=== PATIENT | female | born 2000 | race African-American/Black ===

== ENCOUNTER 2022-04-25 11:38 | Inpatient (IN) | payer BC ==
[2022-04-23 12:11] VITALS: BMI 39.3
[2022-04-25] MEDS ORDERED: BUPIVACAINE HCL/PF 2.5 MG/ML - 30 ML VIAL IJ ONE (12:50)
[2022-04-25] MEDS ORDERED: BUPIVACAINE LIPOSOME/PF (EXPAREL) 266 MG/20 ML VIAL ONE (13:20)
[2022-04-25] MEDS ORDERED: BUPIVACAINE HCL/PF 0.5% (5 MG/ML) 30 ML VIAL IJ ONE (13:20)
[2022-04-25] MEDS ORDERED: MIDAZOLAM HCL 2 MG/2 ML SINGLE DOSE VIAL ONE (13:21)
[2022-04-25] MEDS ORDERED: SUCCINYLCHOLINE CHLORIDE 200 MG/10 ML SYRINGE ONE (13:47)
[2022-04-25] MEDS ORDERED: PROPOFOL 40 ML ONE (13:47)
[2022-04-25] MEDS ORDERED: HYDROmorphone HCL/PF 1 MG/ML VIAL ONE (13:47)
[2022-04-25] MEDS ORDERED: ROCURONIUM BROMIDE 50 MG/5 ML SYRINGE ONE (13:47)
[2022-04-25] MEDS ORDERED: ceFAZolin SODIUM 1 GM VIAL ONE ×2 (13:54→14:03)
[2022-04-25] MEDS ORDERED: KETOROLAC TROMETHAMINE 30 MG/1 ML VIAL ONE (13:54)
[2022-04-25] MEDS ORDERED: DEXAMETHASONE SOD PHOSPHATE 4 MG/1 ML VIAL ONE (13:54)
[2022-04-25] MEDS ORDERED: ONDANSETRON 4 MG/2 ML VIAL ONE (13:54)
[2022-04-25] MEDS ORDERED: BUPIVACAINE HCL/PF 0.25% (2.5MG/ML) 10 ML VIAL IJ ONE (15:47)
[2022-04-25] MEDS ORDERED: NEOSTIGMINE METHYLSULFATE 0.5 MG/1 ML - 10 ML MDV ONE (15:51)
[2022-04-25] MEDS ORDERED: GLYCOPYRROLATE 0.2 MG/1 ML VIAL ONE (15:51)
[2022-04-25] MEDS ORDERED: ONDANSETRON 4 MG/2 ML VIAL IVPUSH PRN ×2 (16:01→16:10)
[2022-04-25] MEDS ORDERED: HYDROmorphone HCl 2 MG/ML VIAL IVPB PRN (16:05)
[2022-04-25] MEDS ORDERED: SODIUM CHLORIDE 1,000 ML IV SCH (16:15)
[2022-04-25] MEDS: METOCLOPRAMIDE HCL INJECTION 10 MG/2 ML VIAL IVPUSH SCH (16:25)
[2022-04-25 16:30] LABS: HEMATOCRIT 36.3 % (32.4-45.2); HEMOGLOBIN 12.1 G/dL (10.7-15.3); MCH 26.5 pg (25.7-33.7); MCHC 33.3 g/dl (32.0-36.0); MEAN CELL VOLUME 79.7 fl (80-96); MEAN PLT VOLUME 8.3 fl (7.5-11.1); PLATELET COUNT 290.4 10^3/uL (134-434); RBC 4.56 10^6/uL (3.60-5.2); RDW 15.6 % (11.6-15.6); WHITE BLOOD COUNT 10.7 10^3/uL (4.0-10.8)
[2022-04-25 16:43] LABS: ALBUMIN 3.7 g/dl (3.4-5.0); BILIRUBIN,TOTAL 0.6 mg/dl (0.2-1); CALCIUM 8.5 mg/dl (8.5-10); CREATININE 0.7 mg/dl (0.55-1.3)
[2022-04-26] MEDS: FAMOTIDINE 20 MG/50 ML IVPB 20 MG/50 ML MG IVPB SCH ×2 (00:03→11:39)
[2022-04-26] MEDS: METOCLOPRAMIDE HCL INJECTION 10 MG/2 ML VIAL IVPUSH SCH ×3 (00:03→11:39)
[2022-04-26 00:41] LABS: HEMATOCRIT 41.5 % (32.4-45.2); HEMOGLOBIN 13.2 GM/dL (10.7-15.3); MCH 25.4 pg (25.7-33.7); MCHC 31.7 g/dl (32.0-36.0); MEAN CELL VOLUME 80.3 fl (80-96); MEAN PLT VOLUME 8.7 fl (7.5-11.1); PLATELET COUNT 310 10^3/uL (134-434); RBC 5.18 M/mm3 (3.60-5.2); RDW 14.8 % (11.6-15.6); WHITE BLOOD COUNT 13.9 K/mm3 (4.0-10.0)
[2022-04-26 01:06] LABS: ALBUMIN 3.9 g/dl (3.4-5.0); BLOOD UREA NITROGEN 9.2 mg/dL (7-18); CALCIUM 9.1 mg/dL (8.5-10.1)
[2022-04-26 01:10] LABS: CREATININE 0.7 mg/dL (0.55-1.3)
[2022-04-26 01:12] LABS: BILIRUBIN,TOTAL 0.5 mg/dL (0.2-1); TOT PROT 7.8 g/dl (6.4-8.2)
[2022-04-26] MEDS: HYDROmorphone HCl 2 MG/ML VIAL IVPB PRN ×2 (03:34→10:49)
[2022-04-26 08:17] LABS: HEMATOCRIT 35.4 % (32.4-45.2); HEMOGLOBIN 11.5 G/dL (10.7-15.3); MCH 26.2 pg (25.7-33.7); MCHC 32.6 g/dl (32.0-36.0); MEAN CELL VOLUME 80.2 fl (80-96); MEAN PLT VOLUME 8.5 fl (7.5-11.1); RBC 4.41 10^6/uL (3.60-5.2); RDW 15.6 % (11.6-15.6); WHITE BLOOD COUNT 16.4 10^3/uL (4.0-10.8)
[2022-04-26 08:26] LABS: ALBUMIN 3.6 g/dl (3.4-5.0); BILIRUBIN,TOTAL 0.9 mg/dl (0.2-1); CALCIUM 8.7 mg/dl (8.5-10); CREATININE 0.5 mg/dl (0.55-1.3); TOT PROT 6.8 g/dl (6.4-8.2)
[2022-04-26 09:02] VITALS: BP 111/70; PULSE 98; RESP 20; TEMP 99.1
[2022-04-26] MEDS ORDERED: SODIUM CHLORIDE 1,000 ML IV SCH (11:45)
[2022-04-26] MEDS ORDERED: ACETAMINOPHEN 325 MG TABLET (FP) PO PRN (11:45)
[2022-04-26] MEDS ORDERED: oxyCODONE HCL 5 MG TABLET PO PRN (11:45)
== END 2022-04-26 13:42 | disposition home or self-care (01) | DRG 621 ==
LOC: FM/S 11:38
PROVIDERS: ADMIT Surgery; ATTEND Surgery
PROC: 0FB24ZX Excision of Left Lobe Liver, Percutaneous Endoscopic Approach, Diagnostic (ICD-10-PCS; 2022-04-25)
PROC: 0DB64Z3 Excision of Stomach, Percutaneous Endoscopic Approach, Vertical (ICD-10-PCS; principal; 2022-04-25 14:17)
DX: E66.01 Morbid (severe) obesity due to excess calories (principal); Z68.39 Body mass index [BMI] 39.0-39.9, adult; R16.0 Hepatomegaly, not elsewhere classified
CPT/HCPCS: 36415; 74240-TC-FY; 80053; 84703; 85027; 86850; 86900; 86901; 88307-TC; 93005; 93010; 94760